=== PATIENT | female | born 1940 | race Caucasian/White ===

== ENCOUNTER 2016-11-11 14:47 | Emergency (ER) | payer MEDICARE ==
[~2016-11-11 14:47] MED LIST: ALLEGRA180 PO; CALTRA600D PO; CENTRUM PO; COQ-10200 MG PO; DHE1 PO; ESTROVEN PO; GLUCOSAMINEPO PO; HALF81 PO; KRILLOIL PO; PRIN5 PO; SURBEX/C1 TAB PO; VITAMIN D2000 UNIT PO; ZANTAC150 MG PO; ZOCOR10 PO
== END 2016-11-11 15:58 | disposition home or self-care (01) ==
LOC: ER 14:47
DX: S60.561A Insect bite (nonvenomous) of right hand, initial encounter (principal); I10 Essential (primary) hypertension; J45.909 Unspecified asthma, uncomplicated; E78.00 Pure hypercholesterolemia, unspecified; Z79.82 Long term (current) use of aspirin; Z79.899 Other long term (current) drug therapy; W57.XXXA Bitten or stung by nonvenomous insect and other nonvenomous arthropods, initial encounter
CPT/HCPCS: 96372; 99282; A9270-GY; J2930